=== PATIENT | male | born 1965 | race Caucasian/White ===

== ENCOUNTER 2020-03-09 15:33 | Outpatient (CLI) | payer OTHER, SELFPAY ==
--- NOTE | 2020-03-09 | US_ITS ---
WS: [id number] RENAL ULTRASOUND URINARY BLADDER ULTRASOUND HISTORY: RENAL FAILURE COMPARISON: None available. TECHNIQUE: 2-D and color Doppler imaging of the kidney submitted. Right kidney: 10.4 cm x 6.7 cm x 5.0 cm. Normal echogenicity with no hydronephrosis or mass. Left kidney: 11.1 cm x 6.7 cm x 6.0 cm. Normal echogenicity with no hydronephrosis or mass. Aorta: Normal. Urinary Bladder: Normally distended urinary bladder. No intraluminal filling defects. Prostate gland is moderately enlarged measuring 5.2 x 3.0 x 5.8 cm. US/US renal BI with bladder IMPRESSION: 1. Normal renal ultrasound. 2. Normal urinary bladder. 3. Prostate gland enlargement.
== END 2020-03-09 15:34 | disposition home or self-care (01) ==
LOC: RAD 15:36
PROVIDERS: Family Provider Family Medicine; Visit Provider Internal Medicine Nephrology
DX: N18.3 Chronic kidney disease, stage 3 (moderate) (principal); N40.0 Benign prostatic hyperplasia without lower urinary tract symptoms
CPT/HCPCS: 76770; 76857